=== PATIENT | male | born 1935 | race Caucasian/White ===

== ENCOUNTER 2017-09-19 15:53 | Inpatient (IN) | payer MEDICARE, OTHER ==
[2017-09-19] VITALS (9 sets, daily range): BP systolic 118–140; BP diastolic 71–85; PULSE 77–97; RESP 16–24; TEMP 97.6–97.9; O2SAT 93–98
[~2017-09-19] VITALS: Ht 177.8 cm; Wt 91.3 kg
[~2017-09-19 15:53] MED LIST: TAMS0.4C67 PO
[2017-09-19] MEDS ORDERED: SODIUM CHLORIDE 0.9% FLUSH 10 ML FLUSH IVF PRN (17:00)
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
[2017-09-19 17:27] LABS: AUTOMATED NEUTROPHIL # 16.6 TH/MM3 (1.8-7.7); BASOPHIL # 0.3 TH/MM3 (0-0.2); BASOPHIL % 1.6 % (0.0-2.0); EOSINOPHIL % 0.1 % (0.0-4.0); HEMATOCRIT 45.3 % (39.0-51.0); HEMOGLOBIN 15.5 GM/DL (13.0-17.0); LYMPH % 2.7 % (9.0-44.0); LYMPHOCYTE # 0.5 TH/MM3 (1.0-4.8); MEAN CELL VOLUME 92.1 FL (80.0-100.0); MEAN CORPUSCULAR HEMOGLOBIN 31.5 PG (27.0-34.0); MEAN CORPUSCULAR HGB CONC 34.2 % (32.0-36.0); MEAN PLATELET VOLUME 7.7 FL (7.0-11.0); MONO % 0.8 % (0.0-8.0); MONOCYTE # 0.1 TH/MM3 (0-0.9); NEUT % 94.8 % (16.0-70.0); PLATELET COUNT 276 TH/MM3 (150-450); RED BLOOD COUNT 4.92 MIL/MM3 (4.50-5.90); RED CELL DISTRIBUTION WIDTH 13.2 % (11.6-17.2); WHITE BLOOD COUNT 17.5 TH/MM3 (4.0-11.0)
[2017-09-19] MEDS ORDERED: LIDOCAINE HCL 2% 50 ML VIAL INFIL ONE (17:30)
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
[2017-09-19 17:43] LABS: BICARBONATE 21.6 MEQ/L (21.0-32.0)
[2017-09-19 17:44] LABS: PROTHROMBIN TIME - PATIENT 10.4 SEC (9.8-11.6)
[2017-09-19] MEDS ORDERED: PROPOFOL 200 MG/20 ML AMP IV ONE (17:45)
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
[2017-09-19 17:46] LABS: CREATININE 0.82 MG/DL (0.60-1.30)
--- NOTE | 2017-09-19 19:13 | RADRPT ---
EXAM DATE: 09/19/2017 7:08 PM EDT AGE/SEX: 82 years / Male INDICATIONS: Post chest tube, CLINICAL DATA: This is the patient's initial encounter. Patient reports that signs and symptoms have been present for 1 day and indicates a pain score of 8/10. MEDICAL/SURGICAL HISTORY: None. None. COMPARISON: [facility], CHEST SINGLE AP, 09/19/2017. . FINDINGS: Left chest tube has been placed with decrease in size of left pneumothorax. Multiple left rib fractur es present. Subcutaneous air present in the left chest wall and left neck. Mild left basilar airspace disease. CONCLUSION: Placement of left chest tube with decrease in size of left pneumothorax. Electronically signed by: Ab Patino MD 09/19/2017 7:11 PM EDT
[2017-09-19] MEDS ORDERED: IOHEXOL 350 MG/ML 10 ML VIAL (for RAD DIAG) IVCONTRAST ONE (20:33)
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
--- NOTE | 2017-09-19 22:20 | PD ---
Data Data Last Documented VS Vital Signs Date Time Temp Pulse Resp B/P (MAP) Pulse Ox O2 Delivery O2 Flow Rate FiO2 09/19/17 17:57 20 93 Nasal Cannula 4.00 09/19/17 17:55 95 09/19/17 15:[address] Brain W/O Iv Contrast(Rout) (09/19/17 16:21) Ct Thorax/ Chest Wo Iv Contras (09/19/17 16:21) Ct Cerv Spine W/O Contrast (09/19/17 16:21) Shoulder, Limited(2vws) (09/19/17 ) Basic Metabolic Panel (Bmp) (09/19/17 16:58) Complete Blood Count With Diff (09/19/17 16:58) Prothrombin Time / Inr (Pt) (09/19/17 16:58) Act Partial Throm Time (Ptt) (09/19/17 16:58) Type And Screen (09/19/17 16:58) Iv Access Insert/Monitor (09/19/17 16:58) Ecg Monitoring (09/19/17 16:58) Oximetry (09/19/17 16:58) Sodium Chloride 0.9% Flush (Ns Flush) (09/19/17 17:00) Chest, Single Ap (09/19/17 ) Lidocaine 2% Inj (Xylocaine 2% Inj) (09/19/17 17:30) Propofol 200 Mg/20 Ml Inj (Diprivan 200 (09/19/17 17:45) Ct Thorax/ Chest W Iv Contrast (09/19/17 18:16) Ct Abd/Pel W Iv Contrast(Rout) (09/19/17 18:16) Chest, Single Ap (09/19/17 ) Admit Order (Ed Use Only) (09/19/17 18:55) Labs Laboratory Tests Test 09/19/17 17:15 White Blood Count 17.5 TH/MM3 Red Blood Count 4.92 MIL/MM3 Hemoglobin 15.5 GM/DL Hematocrit 45.3 % Mean Corpuscular Volume 92.1 FL Mean Corpuscular Hemoglobin 31.5 PG Mean Corpuscular Hemoglobin Concent 34.2 % Red Cell Distribution Width 13.2 % Platelet Count 276 TH/MM3 Mean Platelet Volume 7.7 FL Neutrophils (%) (Auto) 94.8 % Lymphocytes (%) (Auto) 2.7 % Monocytes (%) (Auto) 0.8 % Eosinophils (%) (Auto) 0.1 % Basophils (%) (Auto) 1.6 % Neutrophils # (Auto) 16.6 TH/MM3 Lymphocytes # (Auto) 0.5 TH/MM3 Monocytes # (Auto) 0.1 TH/MM3 Eosinophils # (Auto) 0.0 TH/MM3 Basophils # (Auto) 0.3 TH/MM3 CBC Comment DIFF FINAL Differential Comment Prothrombin Time 10.4 SEC Prothromb Time International Ratio 1.0 RATIO Activated Partial Thromboplast Time 22.2 SEC Blood Urea Nitrogen 19 MG/DL Creatinine 0.82 MG/DL Random Glucose 156 MG/DL Calcium Level 9.0 MG/DL Sodium Level 140 MEQ/L Potassium Level 4.0 MEQ/L Chloride Level 107 MEQ/L Carbon Dioxide Level 21.6 MEQ/L Anion Gap 11 MEQ/L Estimat Glomerular Filtration Rate 90 ML/MIN MDM Supervised Visit with AMARILIS: No Narrative Course I am dictating a procedural sedation note. I attended to the conscious sedation of this patient while Dr. Hong inserted a chest tube. Procedure: I spent a total of 20 minutes at the bedside Patient was placed on oximetry and telemetry and oxygen I initially gave him 50 mg IV propofol, given his age I wanted to go on the light side. Initially that provided good sedation but he started to arouse during the procedure. I gave him an additional 20 mg IV propofol About 2 minutes later I gave him a third dose of 20 mill grams IV propofol for a total of 90 for the entire procedure which is 1 mg/kg Sedation was generally good. Saturations were maintained in the upper 90s throughout Tolerated well Was given time to wear the sedation off without complication Diagnosis Primary Impression: Pneumothorax Qualified Codes: S27.0XXA - Traumatic pneumothorax, initial encounter Additional Impressions: Multiple rib fractures Qualified Codes: S22.42XA - Multiple fractures of ribs, left side, initial encounter for closed fracture Sternal fracture Qualified Codes: S22.20XA - Unspecified fracture of sternum, initial encounter for closed fracture Hemothorax on left Scripts No Active Prescriptions or Reported Meds Chilo Millan MD Sep 19, 2017 22:20
[2017-09-20] VITALS (8 sets, daily range): BP systolic 121–132; BP diastolic 63–93; PULSE 67–88; RESP 17–19; TEMP 97.1–98.4; O2SAT 94–97
[2017-09-20] MEDS ORDERED: ENALAPRILAT 1.25 MG/ML VIAL IV PUSH PRN (01:15)
[2017-09-20] MEDS ORDERED: CHLORHEXIDINE GLUCONATE 2 % 1 PACK (2 CLOTHS) TOP PRN (01:15)
[2017-09-20] MEDS ORDERED: SODIUM CHLORIDE 0.9% FLUSH 10 ML FLUSH IV FLUSH PRN (01:15)
[2017-09-20] MEDS ORDERED: NURSING INFORMATION XX SCH (01:15)
[2017-09-20] MEDS ORDERED: CHLORHEXIDINE GLUCONATE 2 % 1 PACK (2 CLOTHS) TOP SCH (04:00)
[2017-09-20] MEDS: MORPHINE SULFATE 4 MG/ML INJ IV PUSH PRN ×6 (04:13→23:53)
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
[2017-09-20] MEDS ORDERED: oxyCODONE/ACETAMINOPHEN 5 MG/325 MG TAB PO PRN (08:00)
[2017-09-20] MEDS ORDERED: oxyCODONE/ACETAMINOPHEN 10 MG/325 MG TAB PO PRN (08:00)
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
[2017-09-20] MEDS: BACITRACIN TOP OINT 15 GM TUBE TOP SCH ×2 (09:00→20:09)
[2017-09-20] MEDS: LIDOCAINE HCL 5% PATCH T-DERMAL SCH (09:02)
[2017-09-20] MEDS: FAMOTIDINE 20 MG TAB PO SCH ×2 (09:03→20:04)
[2017-09-20] MEDS: METHOCARBAMOL 500 MG TAB PO SCH ×4 (09:03→23:53)
[2017-09-20] MEDS: DOCUSATE SODIUM 100 MG CAP PO SCH ×2 (09:03→20:04)
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
[2017-09-20] MEDS: TAMSULOSIN HCL 0.4 MG CAP PO SCH (12:27)
[2017-09-20] MEDS: fentaNYL 50 MCG/HR PATCH T-DERMAL SCH (12:27)
[2017-09-20] MEDS ORDERED: MAGN30S PO (13:26)
[2017-09-20] MEDS ORDERED: DOCU1CAP39 PO (13:26)
[2017-09-20] MEDS ORDERED: WALKER WHEELS/F1 MIS (13:29)
--- NOTE | 2017-09-20 13:35 | EKG ---
Date Performed: 09/20/2017 Time Performed: 10:16:36 PTAGE: 82 years EKG: Sinus rhythm MARKED LEFT AXIS DEVIATION INCOMPLETE RIGHT BUNDLE BRANCH BLOCK ABNORMAL ECG NO PREVIOUS TRACING Clinical correlation is recommended. DOCTOR: Daniel Galvan Interpretating Date/Time 09/20/2017 13:34:55
[2017-09-20] MEDS: REMOVE OLD LIDOCAINE PATCH T-DERMAL SCH (20:06)
[2017-09-21] VITALS (9 sets, daily range): BP systolic 122–133; BP diastolic 62–72; PULSE 71–77; RESP 15–19; TEMP 97.9–99; O2SAT 93–95
[2017-09-21] MEDS: MORPHINE SULFATE 4 MG/ML INJ IV PUSH PRN ×4 (03:52→21:21)
[2017-09-21 04:40] LABS: AUTOMATED NEUTROPHIL # 10.9 TH/MM3 (1.8-7.7); BASOPHIL % 0.2 % (0.0-2.0); EOSINOPHIL % 0.3 % (0.0-4.0); HEMATOCRIT 39.3 % (39.0-51.0); HEMOGLOBIN 13.1 GM/DL (13.0-17.0); LYMPH % 6.8 % (9.0-44.0); LYMPHOCYTE # 0.9 TH/MM3 (1.0-4.8); MEAN CELL VOLUME 91.1 FL (80.0-100.0); MEAN CORPUSCULAR HEMOGLOBIN 30.2 PG (27.0-34.0); MEAN CORPUSCULAR HGB CONC 33.2 % (32.0-36.0); MEAN PLATELET VOLUME 7.9 FL (7.0-11.0); MONO % 13.2 % (0.0-8.0); MONOCYTE # 1.8 TH/MM3 (0-0.9); NEUT % 79.5 % (16.0-70.0); PLATELET COUNT 200 TH/MM3 (150-450); RED BLOOD COUNT 4.32 MIL/MM3 (4.50-5.90); RED CELL DISTRIBUTION WIDTH 14.2 % (11.6-17.2); WHITE BLOOD COUNT 13.7 TH/MM3 (4.0-11.0)
[2017-09-21 05:01] LABS: BICARBONATE 25.5 MEQ/L (21.0-32.0); CALCIUM 8.5 MG/DL (8.5-10.1); CREATININE 0.73 MG/DL (0.60-1.30)
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
[2017-09-21] MEDS: TAMSULOSIN HCL 0.4 MG CAP PO SCH (08:06)
[2017-09-21] MEDS: FAMOTIDINE 20 MG TAB PO SCH ×2 (08:06→19:52)
[2017-09-21] MEDS: METHOCARBAMOL 500 MG TAB PO SCH ×2 (08:06→17:03)
[2017-09-21] MEDS: DOCUSATE SODIUM 100 MG CAP PO SCH ×2 (08:06→19:52)
[2017-09-21] MEDS: LIDOCAINE HCL 5% PATCH T-DERMAL SCH (08:07)
[2017-09-21] MEDS: BACITRACIN TOP OINT 15 GM TUBE TOP SCH ×2 (08:08→19:53)
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
[2017-09-21] MEDS ORDERED: IOHEXOL 350 MG/ML 10 ML VIAL (for RAD DIAG) IVCONTRAST ONE (11:52)
--- NOTE | 2017-09-21 12:10 | RADRPT ---
EXAM DATE: 09/21/2017 12:01 PM EDT AGE/SEX: 82 years / Male INDICATIONS: Increasing mediastinal hematoma CLINICAL DATA: This is the patient's initial encounter. Patient reports that signs and symptoms have been present for 1 day and indicates a pain score of 8/10. MEDICAL/SURGICAL HISTORY: None. Inguinal hernia repair. RADIATION DOSE: 9.56 CTDI (mGy) COMPARISON: [facility], CT THORAX W CONTRAST, 09/19/2017. . TECHNIQUE: Multiple contiguous axial images were obtained through the chest during bolus infusion of 95 ml Omnipaque 350 (iohexol) nonionic water-soluble contrast as a single exam dose. Images were obtained in suspended respiration using multiple row detector helical technique. Using automated exp osure control and adjustment of the mA and/or kV according to patient size, radiation dose was kept a s low as reasonably achievable to obtain optimal diagnostic quality images. FINDINGS: Lungs: The left-sided chest tube remains in place. Small residual left pneumothorax which is improve d compared to the prior study. There is atelectasis in both lung bases. The atelectasis in the left l mitali base is stable. There is some increasing atelectasis in the right lung base. Otherwise, lung fiel ds are stable. Mediastinum: There has been mild improvement with the previously noted mediastinal hematoma. The vas cular structures are stable. Pleurae: Small right-sided pleural effusion. Mild pleural thickening on the left. Axillae: Stable. There continues to be subcutaneous emphysema along the left chest wall is mildly im proved. Bony Structures: Stable Miscellaneous: The examination was extended to include the upper abdomen, and both adrenal glands ar e normal in size and configuration. CONCLUSION: 1. There has been mild improvement with the previously noted mediastinal hematoma. 2. Left chest tube remains in place with a small residual left pneumothorax which is improved compar ed to the prior study. 3. Bibasilar atelectasis with a small new right-sided pleural effusion. Electronically signed by: Olman Mccarty MD 09/21/2017 12:09 PM EDT
[2017-09-21] MEDS ORDERED: ONDANSETRON ODT 4 MG TAB PO PRN (13:45)
[2017-09-21] MEDS: GABAPENTIN 300 MG CAP PO SCH (17:03)
[2017-09-21] MEDS: MAGNESIUM HYDROXIDE SUSP 30 ML CUP PO PRN (17:18)
[2017-09-21 19:29] LABS: BILIRUBIN, URINE NEG (NEG); BLOOD, URINE LARGE (NEG); CALCIUM OXALATE CRYSTALS,URINE RARE /hpf; GLUCOSE,URINE NEG (NEG); KETONE, URINE NEG (NEG); MUCUS URINE FEW /lpf (OCC); NITRITE,URINE NEG (NEG); URINE COLOR YELLOW (YELLW/STRAW); URINE LEUKOCYTE ESTERASE NEG (NEG)
[2017-09-21] MEDS: REMOVE OLD LIDOCAINE PATCH T-DERMAL SCH (19:53)
[2017-09-22] VITALS (10 sets, daily range): BP systolic 118–138; BP diastolic 60–64; PULSE 70–95; RESP 18–19; TEMP 97.4–98.1; O2SAT 93–97
[2017-09-22] MEDS: METHOCARBAMOL 500 MG TAB PO SCH ×4 (00:13→23:16)
[2017-09-22] MEDS: MORPHINE SULFATE 4 MG/ML INJ IV PUSH PRN ×4 (04:20→16:11)
--- NOTE | 2017-09-22 06:11 | RADRPT ---
EXAM DATE: 09/22/2017 5:34 AM EDT AGE/SEX: 82 years / Male INDICATIONS: Short of breath, pain left chest, fell 4 days ago, evaluate left side chest tube CLINICAL DATA: This is the patient's subsequent encounter. Patient reports that signs and symptoms h ave been present for 4 - 6 days and indicates a pain score of 10/10. MEDICAL/SURGICAL HISTORY: . rib fracture . chest tube [place] [facility] [place]. . FINDINGS: Left-sided chest tube is seen with its tip coiled in the apex. Small left apical pleural effusion. Th ere is quite tortuous. Mild bibasilar atelectasis. Small left rib fractures unchanged CONCLUSION: Chest tube in good position. Aorta remains quite tortuous. Electronically signed by: Demetrio Camargo MD 09/22/2017 6:09 AM EDT
[2017-09-22] MEDS: DOCUSATE SODIUM 100 MG CAP PO SCH ×2 (07:54→23:16)
[2017-09-22] MEDS: FAMOTIDINE 20 MG TAB PO SCH ×2 (07:54→23:16)
[2017-09-22] MEDS: TAMSULOSIN HCL 0.4 MG CAP PO SCH (07:55)
[2017-09-22] MEDS: GABAPENTIN 300 MG CAP PO SCH ×3 (07:55→18:00)
[2017-09-22] MEDS: LIDOCAINE HCL 5% PATCH T-DERMAL SCH (07:56)
[2017-09-22] MEDS: BACITRACIN TOP OINT 15 GM TUBE TOP SCH ×2 (07:56→21:00)
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
[2017-09-22] MEDS: traMADol HCL 50 MG TAB PO SCH ×2 (13:22→23:17)
[2017-09-22] MEDS: ENOXAPARIN SODIUM 40 MG/0.4 ML SYRINGE SQ SCH (13:27)
[2017-09-22] MEDS: MAGNESIUM HYDROXIDE SUSP 30 ML CUP PO PRN (13:27)
[2017-09-22] MEDS ORDERED: BISACODYL EC 5 MG TABEC PO ONE (17:00)
[2017-09-22] MEDS ORDERED: BISACODYL 10 MG SUPP RECTAL ONE (17:00)
[2017-09-22] MEDS: REMOVE OLD LIDOCAINE PATCH T-DERMAL SCH (23:17)
[2017-09-23] VITALS (9 sets, daily range): BP systolic 118–139; BP diastolic 60–71; PULSE 70–90; RESP 16–18; TEMP 97.6–98.6; O2SAT 90–98
[2017-09-23] MEDS: traMADol HCL 50 MG TAB PO SCH ×3 (05:22→20:33)
--- NOTE | 2017-09-23 07:09 | RADRPT ---
EXAM DATE: 09/23/2017 7:01 AM EDT AGE/SEX: 82 years / Male INDICATIONS: Short of breath. CLINICAL DATA: This is the patient's subsequent encounter. Patient reports that signs and symptoms h ave been present for 4 - 6 days and indicates a pain score of Nonresponsive. MEDICAL/SURGICAL HISTORY: None. None. COMPARISON: [facility] [place], CHEST SINGLE AP, 09/22/2017. . FINDINGS: Portable AP view of the chest demonstrates a normal-sized cardiac silhouette. Lungs are underinflated with mild bibasilar opacity, stable from the prior study. Left chest tube is in place with tip at th e apex of the left hemithorax. No pneumothorax is identified. There is stable mild left chest wall lane bcutaneous air. Left ribs have a stable appearance. CONCLUSION: 1. Left chest tube remains present and no pneumothorax is visualized. There is stable left chest wal l subcutaneous air. 2. Under inflation with stable bibasilar airspace opacity representing either atelectasis or consoli dation Electronically signed by: Felipe Earl MD 09/23/2017 7:07 AM EDT
[2017-09-23] MEDS: FAMOTIDINE 20 MG TAB PO SCH ×2 (08:25→20:33)
[2017-09-23] MEDS: METHOCARBAMOL 500 MG TAB PO SCH ×2 (08:25→15:37)
[2017-09-23] MEDS: TAMSULOSIN HCL 0.4 MG CAP PO SCH (08:25)
[2017-09-23] MEDS: LIDOCAINE HCL 5% PATCH T-DERMAL SCH (08:25)
[2017-09-23] MEDS: DOCUSATE SODIUM 100 MG CAP PO SCH ×2 (08:25→20:33)
[2017-09-23] MEDS: GABAPENTIN 300 MG CAP PO SCH ×3 (08:26→16:31)
[2017-09-23] MEDS: MAGNESIUM HYDROXIDE SUSP 30 ML CUP PO PRN (08:28)
[2017-09-23] MEDS: BACITRACIN TOP OINT 15 GM TUBE TOP SCH ×2 (08:34→20:34)
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
[2017-09-23] MEDS: MORPHINE SULFATE 4 MG/ML INJ IV PUSH PRN (11:42)
[2017-09-23] MEDS: fentaNYL 50 MCG/HR PATCH T-DERMAL SCH (11:43)
[2017-09-23] MEDS: ENOXAPARIN SODIUM 40 MG/0.4 ML SYRINGE SQ SCH (14:45)
--- NOTE | 2017-09-23 15:34 | ECHRPT ---
Indication: CHEST TRAUMA CONCLUSIONS Normal left ventricular size. Mild concentric left ventricular hypertrophy. The left ventricular systolic function is normal with an estimated ejection fraction in the range of 55-60%. A right sided pleural effusion is present. BP: 128 / 61 HR: 83 Rhythm: Sinus MEASUREMENTS (Male / Female) Normal Values Technical Quality:Technically difficult study 2D ECHO LV Diastolic Diameter PLAX 4.3 cm 4.2 - 5.9 / 3.9 - 5.3 cm LV Systolic Diameter PLAX 3.2 cm IVS Diastolic Thickness 1.3 cm 0.6 - 1.0 / 0.6 - 0.9 cm LVPW Diastolic Thickness 1.3 cm 0.6 - 1.0 / 0.6 - 0.9 cm LV Relative Wall Thickness 0.6 RV Internal Dim ED PLAX 2.1 cm LVOT Diameter 2.3 cm Aortic Root Diameter 3.7 cm LA Systolic Diameter LX 2.3 cm 3.0 - 4.0 / 2.7 - 3.8 cm M-MODE AV Cusp Separation MM 1.9 cm DOPPLER Right Atrial Pressure 10.0 mmHg PV Peak Velocity 69.2 cm/s PV Peak Gradient 1.9 mmHg FINDINGS LEFT VENTRICLE Normal left ventricular size. Mild concentric left ventricular hypertrophy. The left ventricular systolic function is normal with an estimated ejection fraction in the range of 55-60%. RIGHT VENTRICLE Normal right ventricular size and systolic function. LEFT ATRIUM The left atrial size is normal. RIGHT ATRIUM The right atrial size is normal. ATRIAL SEPTUM No atrial level shunt is demonstrated by color flow Doppler interrogation. AORTA The aortic root and proximal ascending aorta are not well visualized. MITRAL VALVE Structurally normal mitral valve. No mitral valve stenosis or regurgitation. AORTIC VALVE Trileaflet aortic valve. No aortic valve stenosis or regurgitation. TRICUSPID VALVE Structurally normal tricuspid valve. No tricuspid valve stenosis or regurgitation. PULMONARY VALVE No pulmonary valve regurgitation or stenosis. VESSELS The inferior vena cava is normal in size. PERICARDIUM No pericardial effusion. A right sided pleural effusion is present. Nga Yanez MD, FACC (Electronically Signed) Final Date:23 September 2017 15:33
[2017-09-23] MEDS ORDERED: BISACODYL 10 MG SUPP RECTAL ONE (16:00)
[2017-09-23] MEDS: REMOVE OLD LIDOCAINE PATCH T-DERMAL SCH (20:33)
[2017-09-24] MEDS: METHOCARBAMOL 500 MG TAB PO SCH ×2 (00:43→08:19)
[2017-09-24] MEDS: traMADol HCL 50 MG TAB PO SCH (05:30)
[2017-09-24 07:24] LABS: AUTOMATED NEUTROPHIL # 7.9 TH/MM3 (1.8-7.7); BASOPHIL % 0.4 % (0.0-2.0); EOSINOPHIL # 0.2 TH/MM3 (0-0.4); EOSINOPHIL % 1.6 % (0.0-4.0); HEMATOCRIT 38.9 % (39.0-51.0); HEMOGLOBIN 13.3 GM/DL (13.0-17.0); LYMPH % 11.9 % (9.0-44.0); LYMPHOCYTE # 1.3 TH/MM3 (1.0-4.8); MEAN CELL VOLUME 90.6 FL (80.0-100.0); MEAN CORPUSCULAR HGB CONC 34.2 % (32.0-36.0); MEAN PLATELET VOLUME 7.4 FL (7.0-11.0); MONO % 12.1 % (0.0-8.0); MONOCYTE # 1.3 TH/MM3 (0-0.9); PLATELET COUNT 314 TH/MM3 (150-450); RED BLOOD COUNT 4.29 MIL/MM3 (4.50-5.90); RED CELL DISTRIBUTION WIDTH 13.8 % (11.6-17.2); WHITE BLOOD COUNT 10.6 TH/MM3 (4.0-11.0)
--- NOTE | 2017-09-24 07:33 | RADRPT ---
EXAM DATE: 09/24/2017 7:28 AM EDT AGE/SEX: 82 years / Male INDICATIONS: Short of breath, follow up post chest tube removal CLINICAL DATA: This is the patient's subsequent encounter. Patient reports that signs and symptoms h ave been present for 1 week and indicates a pain score of 7/10. MEDICAL/SURGICAL HISTORY: . rib fracture . chest tube COMPARISON: [facility] – [place], CHEST SINGLE AP, 09/23/2017. . FINDINGS: The previously noted left-sided chest tube has been removed. No definite pneumothorax. There is some parenchymal changes in both lung bases suggestive of atelectasis. There is some stable pleural thicke yesi along the left lateral hemithorax. There appear to be some stable old appearing left-sided rib f ractures. The heart size is stable. No significant pleural effusions are demonstrated. CONCLUSION: The left-sided chest tube has remained been removed. No definite pneumothorax. Electronically signed by: Olman Mccarty MD 09/24/2017 7:32 AM EDT
[2017-09-24] MEDS ORDERED: BISACODYL EC 5 MG TABEC PO ONE (07:45)
[2017-09-24] MEDS ORDERED: BISACODYL 10 MG SUPP RECTAL ONE (07:45)
[2017-09-24 08:00] VITALS: BP 143/71; PULSE 82; RESP 16; TEMP 97.9; O2SAT 94
[2017-09-24] MEDS: DOCUSATE SODIUM 100 MG CAP PO SCH (08:19)
[2017-09-24] MEDS: FAMOTIDINE 20 MG TAB PO SCH (08:20)
[2017-09-24] MEDS: TAMSULOSIN HCL 0.4 MG CAP PO SCH (08:20)
[2017-09-24] MEDS: GABAPENTIN 300 MG CAP PO SCH (08:20)
[2017-09-24] MEDS: LIDOCAINE HCL 5% PATCH T-DERMAL SCH (08:20)
[2017-09-24] MEDS: BACITRACIN TOP OINT 15 GM TUBE TOP SCH (08:21)
[2017-09-24 08:41] LABS: ALBUMIN 3.1 GM/DL (3.4-5.0); ALKALINE PHOSPHATASE 69 U/L (45-117); ALT (GPT) 28 U/L (12-78); AST (GOT) 24 U/L (15-37); BICARBONATE 27.9 MEQ/L (21.0-32.0); BLOOD UREA NITROGEN 16 MG/DL (7-18); CALCIUM 8.8 MG/DL (8.5-10.1); CHLORIDE 101 MEQ/L (98-107); CREATININE 0.69 MG/DL (0.60-1.30); GLOMERULAR FILTRATION RATE 110 ML/MIN (>89); GLUCOSE,RANDOM 108 MG/DL (74-106); SODIUM (NA) 138 MEQ/L (136-145); TOTAL BILIRUBIN ADULT 1.2 MG/DL (0.2-1.0); TOTAL PROTEIN 6.9 GM/DL (6.4-8.2)
[2017-09-24] MEDS ORDERED: METH500T3 PO (08:46)
[2017-09-24] MEDS ORDERED: LIDO1ADH4 T-DERMAL (08:46)
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
== END 2017-09-24 09:42 | disposition home or self-care (01) | DRG 200 ==
LOC: PHEFT 15:53 → PHEDA 18:57 → N06A 09-20 00:38
PROVIDERS: ADMIT Surgery; ATTEND Surgery
PROC: 0W9B30Z Drainage of Left Pleural Cavity with Drainage Device, Percutaneous Approach (ICD-10-PCS; principal; 2017-09-19)
DX: S27.2XXA Traumatic hemopneumothorax, initial encounter (principal); S22.42XA Multiple fractures of ribs, left side, initial encounter for closed fracture; J90 Pleural effusion, not elsewhere classified; I45.10 Unspecified right bundle-branch block; S22.20XA Unspecified fracture of sternum, initial encounter for closed fracture; S27.892A Contusion of other specified intrathoracic organs, initial encounter; V17.0XXA Pedal cycle driver injured in collision with fixed or stationary object in nontraffic accident, initial encounter; Y93.55 Activity, bike riding; Y92.832 Beach as the place of occurrence of the external cause; Z79.899 Other long term (current) drug therapy
CPT/HCPCS: 32551; 70450; 71045; 71250; 71260; 72125; 73030; 74177; 80048; 80053; 81001; 85025; 85610; 85730; 86850; 86900; 86901; 93005; 93306; 94150; 94667; 94668; J1650; J2270; J3010; Q9967